=== PATIENT | male | born 1960 | race Caucasian/White ===

== ENCOUNTER 2021-04-07 14:34 | Emergency (ER) | payer BC ==
[~2021-04-07] VITALS: Ht 180.3 cm; Wt 130.6 kg
[2021-04-07 14:45] VITALS: BP 161/97
--- NOTE | 2021-04-07 16:44 | NUR ---
Patient ambulated to bed 11.
--- NOTE | 2021-04-07 16:48 | NUR ---
NETWORK SYSTEMS CONSULTANT AT PT BEDSIDE.
--- NOTE | 2021-04-07 16:52 | NUR ---
61 Y/O MALE C/O DIFFICULTY URINATING. PT STATES HE WAS PASSING A KIDNEY STONE AND STATES "I THINK IT GOT STUCK." PT WAS REFERRED BY HIS PCP TO COME TO ED, REPORTS FEELING BLOATED AND +N X1DAY. DENIES FEVER/CHILLS. DENIES DYSURIA. STATES HEMATURIA. PMH: HTN ALLERGIES: LIDOCAINE, PROCAINE
[2021-04-07 17:04] LABS: BASOPHILS % (AUTO) 0.1 % (0.0-2.0); HEMATOCRIT 43.8 % (36-52); HEMOGLOBIN 15.3 g/dL (12.0-18.0); LYMPHOCYTES # (AUTO) 0.6 K/uL (2.0-11.5); LYMPHOCYTES % (AUTO) 4.2 % (20.5-51.1); MEAN CORPUSCULAR HEMOGLOBIN 34 pg (27-31); MEAN CORPUSCULAR HGB CONC 35 g/dL (33-37); MEAN CORPUSCULAR VOLUME 96.1 fL (80-94); MONOCYTES # (AUTO) 1.7 K/uL (0.8-1.0); MONOCYTES % (AUTO) 12.3 % (1.7-9.3); NEUTROPHILS # (AUTO) 11.9 K/uL (1.8-7.7); NEUTROPHILS % (AUTO) 83.4 % (42.2-75.2); PLATELET COUNT (AUTO) 245 K/uL (140-450); RED BLOOD CELL COUNT(AUTO) 4.56 MIL/uL (4.20-6.10); RED CELL DISTRIBUTION WIDTH 12.8 % (11.6-13.7); WHITE BLOOD COUNT (AUTO) 14.2 K/uL (4.8-10.8)
[2021-04-07 17:20] LABS: ANION GAP 17.9 (8-16); CARBON DIOXIDE 20.9 mmol/L (21-32); CREATININE 1.4 mg/dL (0.6-1.3); POTASSIUM 3.8 mmol/L (3.5-5.1); TOTAL BILIRUBIN 1.2 mg/dL (0.0-1.0)
[2021-04-07] MEDS ORDERED: KETOROLAC 30 MG/ML VIAL IM ONE (17:45)
[2021-04-07 18:04] LABS: BILIRUBIN,URINE 1+ (NEGATIVE); BLOOD, URINE 3+ (NEGATIVE); COLOR,URINE YELLOW (YELLOW); LEUKOCYTE ESTERASE ,URINE 1+ (NEGATIVE); NITRITE, URINE NEGATIVE (NEGATIVE); UGLUCOSE NEGATIVE (NEGATIVE)
[2021-04-07 18:05] LABS: APPEARANCE,URINE HAZY (CLEAR)
[2021-04-07 18:15] LABS: RBC,URINE NONE SEEN /HPF (0-5); WBC,URINE TOO MANY TO COUNT /HPF (0-5)
[2021-04-07 18:16] LABS: COARSE GRANULAR CASTS,URINE 0-10 /LPF (None Seen)
[2021-04-07] MEDS ORDERED: CEPH-588 PO (18:31)
[2021-04-07] MEDS ORDERED: PYR100 PO (18:31)
[2021-04-07] MEDS ORDERED: ONDA-188 SL (18:31)
[2021-04-07 19:05] VITALS: BP 144/85
--- NOTE | 2021-04-07 19:19 | NUR ---
Patient discharged with v/s stable. Written and verbal after care instructions given FOR ACUTE BRONCHITIS and explained. Patient alert, oriented and verbalized understanding of instructions. Ambulatory with steady gait. All questions addressed prior to discharge. ID band removed. Patient advised to follow up with PMD. Rx of ALBUTEROL, NAPROXEN given. Patient educated on indication of medication including possible reaction and side effects. Opportunity to ask questions provided and answered.
== END 2021-04-07 19:19 | disposition home or self-care (01) ==
LOC: MED 14:34
DX: J06.9 Acute upper respiratory infection, unspecified (principal); R14.0 Abdominal distension (gaseous); Z87.442 Personal history of urinary calculi; Z88.5 Allergy status to narcotic agent; Z88.8 Allergy status to other drugs, medicaments and biological substances
CPT/HCPCS: 36415; 74176; 80053; 81001; 83690; 85025; 87086; 96372; 99284; J1885

== ENCOUNTER 2021-05-12 18:04 | Emergency (ER) | payer BC ==
[~2021-05-12] VITALS: Ht 180.3 cm; Wt 126.1 kg
[~2021-05-12 18:04] MED LIST: CEPH-588 PO; ONDA-188 SL; PYR100 PO
[2021-05-12 18:13] VITALS: BP 169/96
--- NOTE | 2021-05-12 18:51 | NUR ---
61/M PRESENTS TO ED WITH C/O DIFFICULTY URINATING SINCE 3PM. PATIENT STATES HE HAS 8/10 PRESSURE LIKE PAIN IN LOWER ABDOMEN, REPORTS THE LAST TIME HE WAS ABLE TO EMPTY HIS BLADDER WAS ABOUT 2:30 PM. PATIENT STATES EVER SINCE HE HAS THE STRONG URGE TO URINATE BUT STATES "ONLY DROPS COME OUT." REPORTS HIS LAST VISIT HERE HE WAS DX WITH AN ENLARGED PROSTATE AND HAS SINCE BEEN DX WITH PROSTATE CANCER BY HIS PCP. DENIES ANY N/V/D, HEMATURIA OR BACK PAIN.
--- NOTE | 2021-05-12 19:19 | NUR ---
Pt report given to JOELLE HERNANDEZ. Transfer of care at this time.
[2021-05-12] MEDS ORDERED: HYDROmorphone PFS 2 MG/ML SYR IVP ONE (19:25)
[2021-05-12 19:50] LABS: BASOPHILS # (AUTO) 0.1 K/uL (0.00-0.22); BASOPHILS % (AUTO) 0.5 % (0.0-2.0); EOSINOPHILS # (AUTO) 0.1 K/uL (0-0.4); EOSINOPHILS % (AUTO) 0.5 % (0.0-4.0); HEMATOCRIT 39.3 % (36-52); HEMOGLOBIN 13.8 g/dL (12.0-18.0); LYMPHOCYTES # (AUTO) 0.9 K/uL (2.0-11.5); LYMPHOCYTES % (AUTO) 5.7 % (20.5-51.1); MEAN CORPUSCULAR HEMOGLOBIN 34 pg (27-31); MEAN CORPUSCULAR HGB CONC 35 g/dL (33-37); MEAN CORPUSCULAR VOLUME 95.2 fL (80-94); MONOCYTES # (AUTO) 0.8 K/uL (0.8-1.0); MONOCYTES % (AUTO) 5.3 % (1.7-9.3); NEUTROPHILS # (AUTO) 13.5 K/uL (1.8-7.7); PLATELET COUNT (AUTO) 399 K/uL (140-450); RED BLOOD CELL COUNT(AUTO) 4.13 MIL/uL (4.20-6.10); RED CELL DISTRIBUTION WIDTH 12.6 % (11.6-13.7); WHITE BLOOD COUNT (AUTO) 15.3 K/uL (4.8-10.8)
--- NOTE | 2021-05-12 20:20 | NUR ---
PT RETURNED FROM CT
[2021-05-12 20:30] LABS: ALBUMIN 3.4 g/dL (3.4-5.0); ANION GAP 15.8 (8-16); CARBON DIOXIDE 21.8 mmol/L (21-32); CREATININE 1.2 mg/dL (0.6-1.3); POTASSIUM 3.6 mmol/L (3.5-5.1); TOTAL BILIRUBIN 0.4 mg/dL (0.0-1.0)
--- NOTE | 2021-05-12 20:31 | NUR ---
PT STATES HIS PRESSURE FEELS IF IT HAS MOVED FROM HIS BLADDER TO HIS PENIS. PT REPORTS NO PAIN BUT INSTEAD A 4/10 PRESSURE. PT FEELS AN URGE TO USE THE RESTROOM EVERY 10 MINUTES.
[2021-05-12 20:57] LABS: APPEARANCE,URINE CLEAR (CLEAR); BILIRUBIN,URINE NEGATIVE (NEGATIVE); BLOOD, URINE 3+ (NEGATIVE); COLOR,URINE YELLOW (YELLOW); LEUKOCYTE ESTERASE ,URINE 1+ (NEGATIVE); NITRITE, URINE POSITIVE (NEGATIVE); PH,URINE 5.5 (5.0-9.0); UGLUCOSE 1+ (NEGATIVE)
--- NOTE | 2021-05-12 21:13 | NUR ---
BLADDER SCAN PERFORMED. CONSISTENT READING OF 35 ML. PT TOLERATED PROCEDURE WELL.
[2021-05-12 22:25] VITALS: BP 133/79
[2021-05-12] MEDS ORDERED: cefTRIAXone 1,000 MG VIAL ONE (22:27)
[2021-05-12 22:43] LABS: RBC,URINE 0-5 /HPF (0-5); WBC,URINE 20-60 /HPF (0-5)
[2021-05-12] MEDS ORDERED: NACL 0.9% 1,000 ML IV ONE (23:55)
[2021-05-13] MEDS ORDERED: NITR100C7 PO (00:32)
[2021-05-13] MEDS ORDERED: MAGNESIUM CITRATE 300 ML BTL PO ONE (00:35)
--- NOTE | 2021-05-13 00:56 | NUR ---
ER MD TALKING WITH PT CONCERNING DISCHARGE. ADVISED LAST BAG OF NS AND REINSERTION OF IV NOT NEEDED. INSTEAD PT WOULD RECIEVE MEDICATION MELENDEZ WITH LEG BAG AND THEN DISCHARGED.
--- NOTE | 2021-05-13 01:30 | NUR ---
# 16 FR Luna catheter with 10 ml utilizing sterile technique. Immediate return of 30 ml YELLOW urine noted. Leg drainage bag placed below level of bladder. Pt tolerated procedure WELL.
--- NOTE | 2021-05-13 01:41 | NUR ---
d/c with VSS. d/c education given. opportunity to ask questions given and answered. rx of macrobid given. IV site removed, bleeding controlled with sterile gauze and reinforced with tape.
--- NOTE | 2021-05-14 13:33 | NUR ---
LATE ENTRY- IV NORMAL SALINE DISCONTINUED AT 0141.
== END 2021-05-13 01:40 | disposition home or self-care (01) ==
LOC: MED 18:04
DX: N39.0 Urinary tract infection, site not specified (principal); R33.9 Retention of urine, unspecified; R14.0 Abdominal distension (gaseous); Z79.899 Other long term (current) drug therapy; Z88.8 Allergy status to other drugs, medicaments and biological substances
CPT/HCPCS: 36415; 51702; 74176; 80053; 81001; 83605; 85025; 87086; 93005; 96365; 96375; 99285; J0696; J1170; J7030